=== PATIENT | female | born 1955 | race American Indian/Alaskan Native ===

== ENCOUNTER 2023-05-07 18:35 | Emergency (ER) | payer MEDICARE, MEDICAID ==
[~2023-05-07] VITALS: Ht 170.2 cm; Wt 80.5 kg
[2023-05-07 18:44] VITALS: TEMP 97
[2023-05-07] MEDS ORDERED: acetaminophen 325mg tablet PO ONE (22:20)
[2023-05-07 22:52] LABS: BILIRUBIN,URINE SMALL (Neg); CLARITY,URINE CLEAR (Clear); GLUCOSE, URINE NEGATIVE (Neg); KETONES,URINE 15 mg/dl (Neg); LEUKOCYTE ESTERASE ,URINE NEGATIVE (Neg); NITRITES, URINE NEGATIVE (Neg); OCCULT BLOOD,URINE NEGATIVE (Neg); PROTEIN,URINE 30 mg/dl (Neg); UROBILINOGEN,URINE 0.2 E.U/dL (0.2-1.0)
[2023-05-07 22:57] LABS: COLOR,URINE DARK YELLOW (Yellow); UA COLLECTION TYPE CLN CATCH MIDSTREAM
[2023-05-07 22:59] LABS: BACTERIA,URINE FEW /HPF (Neg); CAL OXALATE CRYSTALS 2+ /HPF (NEGATIVE); MUCUS STRANDS MODERATE /LPF (Neg); RBC,URINE 0-2 /HPF (0-2); SQUAMOUS EPITHELIAL CELL,UR FEW /LPF (FEW)
[2023-05-07 23:00] LABS: FINE GRANULAR CAST 0-3 /LPF (NEGATIVE)
[2023-05-08 00:07] VITALS: BP 130/68; PULSE 58; RESP 14; O2SAT 100
== END 2023-05-08 00:12 | disposition home or self-care (01) ==
LOC: ER 18:35
DX: S00.03XA Contusion of scalp, initial encounter (principal); M19.90 Unspecified osteoarthritis, unspecified site; Z88.8 Allergy status to other drugs, medicaments and biological substances; Z88.5 Allergy status to narcotic agent; W19.XXXA Unspecified fall, initial encounter; Y93.89 Activity, other specified; Y92.89 Other specified places as the place of occurrence of the external cause; Y99.8 Other external cause status
CPT/HCPCS: 70450; 72125; 81001; 87088; 99284